=== PATIENT | female | born 1945 | race Caucasian/White ===

== ENCOUNTER 2017-02-08 15:23 | Emergency (ER) | payer OTHER ==
[2017-02-08 16:01] VITALS: BP 151/90; PULSE 97; TEMP 98; BMI 20.3
--- NOTE | 2017-02-08 16:47 | PDOC ---
Attending Attestation - Resident Resident Name: [email or web address] - ED Attending Attestation I have performed the following: I have examined & evaluated the patient, The case was reviewed & discussed with the resident, I agree w/resident's findings & plan, Exceptions are as noted - HPI HPI: 02/08/17 17:29 71 yo female with h/o alcoholism fell a day ago and sustained a scalp laceration PMH HTN and takes phillip PCP - Physicial Exam PE: 02/08/17 19:24 alert and conversant 71 yo female came today because she fell on [place] while intoxicated and wants to make sure her head is "OK" Head -several days old linear scalp laceration noted lungs cta b/l cvr [id number] and soft ,nontender extermities no extremity deformities neuro alert and oriented x 3,ambulatory, currently speaking with her - Medical Decision Making 02/08/17 19:04 ct scan head: there is no calvarial.facial or skull fractures. There is no intracranial hemorrhages or brain parenchymal contusion injuries. There are no extra-axial fluid collections or evidence of an intra -axial mass lesion -there is no evidence of acute ischemic lesion at this time 02/08/17 19:27 pt discharged home with her
[2017-02-08] MEDS ORDERED: FOLIC ACID INJECTION - 1 MG, THIAMINE HCL 100 MG, MULTIVIT INJECTION ADULT 10 ML in SOD... IVPB ONE (16:56)
[2017-02-08] MEDS ORDERED: MAGNESIUM SULF 50% (8.12 MEQ/2 ML-1 GM VIAL) IVPB ONE (16:56)
[2017-02-08 17:20] LABS: BASOPHIL 0.8 % (0-2.0); EOSINOPHIL 0.3 % (0-4.5); MEAN PLT VOLUME 7.3 fl (7.5-11.1); NEUTROPHILS 71.1 % (42.8-82.8); PLATELET COUNT 235 K/MM3 (134-434); RDW 14.3 % (11.6-15.6); WHITE BLOOD COUNT 9.1 K/mm3 (4.0-10.0)
--- NOTE | 2017-02-08 17:20 | PDOC ---
History of Present Illness - General History Source: Patient Exam Limitations: No Limitations - History of Present Illness Initial Comments: 02/08/17 17:15 The patient is a 71F with a PMH of alcoholism, glaucoma, and anxiety who presents to the ED after drinking and sustaining a fall. The patient states that she had her first drink in 3 years on Thursday and then fell. She does not remember the fall, she just remembers blood coming from her head. She also drank last night. She states that she woke up this morning feeling "awful" like a hangover. She denies any fever, chills, nausea, vomiting, CP, SOB. <Jose Morton - Last Filed: 02/08/17 17:25> <Porsche Paez - Last Filed: 02/08/17 19:28> - General Chief Complaint: Injury Stated Complaint: PCP SENT Time Seen by Provider: 02/08/17 16:30 Past History - Past Medical History Thyroid Disease: No - Suicide/Smoking/Psychosocial Hx Smoking History: Never smoked Have you smoked in the past 12 months: No Information on smoking cessation initiated: No Hx Alcohol Use: Yes Drug/Substance Use Hx: No Substance Use Type: None <Jose Morton - Last Filed: 02/08/17 17:25> <Porsche Paez - Last Filed: 02/08/17 19:28> - Past Medical History Allergies/Adverse Reactions: Allergies Allergy/AdvReac Type Severity Reaction Status Date / Time No Known Allergies Allergy Verified 02/08/17 16:01 Home Medications: Ambulatory Orders Brimonidine Tartrate [Alphagan 0.2% -] 1 drop OU DAILY 02/08/17 Review of Systems - Review of Systems Able to Perform ROS?: Yes Is the patient limited German proficient: No Constitutional: No: Chills, Fever HEENTM: No: Eye Pain Respiratory: No: Cough, Orthopnea, Shortness of Breath Cardiac (ROS): No: Chest Pain, Palpitations ABD/GI: No: Nausea, Vomiting : No: Burning, Dysuria, Discharge, Hematuria Musculoskeletal: No: Muscle Pain, Muscle Weakness Integumentary: No: Bruising, Dryness, Rash Neurological: No: Headache, Numbness, Tingling, Weakness <Jose Morton - Last Filed: 02/08/17 17:25> *Physical Exam - Vital Signs Last Vital Signs Temp Pulse Resp BP Pulse Ox 98.0 F 97 H 18 151/90 100 02/08/17 15:57 02/08/17 15:57 02/08/17 15:57 02/08/17 15:57 02/08/17 15:57 - Physical Exam General Appearance: Yes: Nourished, Appropriately Dressed, Mild Distress, Other. No: Apparent Distress, Alcohol on Breath (slightly shaky) HEENT: positive: Normal Voice, Hearing Grossly Normal Respiratory/Chest: positive: Lungs Clear, Normal Breath Sounds. negative: Chest Tender Cardiovascular: positive: Regular Rhythm, Regular Rate, S1, S2. negative: Diastolic Murmur, Systolic Murmur Gastrointestinal/Abdominal: positive: Flat, Soft. negative: Tender, Guarding, Rebound, Tenderness Musculoskeletal: negative: CVA Tenderness, CVA Tenderness (R), CVA Tenderness (L ) Extremity: positive: Normal Inspection, Normal Range of Motion, Other (2 cm healed laceration on R parietal scalp. Non erythematous and not warm to touch. No drainage/pus.). negative: Swelling, Calf Tenderness Integumentary: positive: Dry, Warm <Jose Morton - Last Filed: 02/08/17 17:25> - Vital Signs Last Vital Signs Temp Pulse Resp BP Pulse Ox 98.0 F 97 H 18 151/90 100 02/08/17 15:57 02/08/17 15:57 02/08/17 15:57 02/08/17 15:57 02/08/17 15:57 <Porsche Paez - Last Filed: 02/08/17 19:28> ED Treatment Course - LABORATORY CBC & Chemistry Diagram: 02/08/17 17:10 02/08/17 17:10 <Jose Morton - Last Filed: 02/08/17 17:25> - LABORATORY CBC & Chemistry Diagram: 02/08/17 17:10 02/08/17 17:10 - ADDITIONAL ORDERS Additional order review: Laboratory Results 02/08/17 02/08/17 17:10 17:10 Sodium 138 Potassium 4.1 Chloride 99 Carbon Dioxide 28 Anion Gap 11 BUN 23 H Creatinine 0.9 Creat Clearance w eGFR > 60 Random Glucose 103 Calcium 8.8 Total Bilirubin 0.7 AST 58 H ALT 41 Alkaline Phosphatase 86 Total Protein 7.1 Albumin 3.9 Alcohol, Quantitative < 5.0 02/08/17 17:10 RBC 4.85 MCV 88.0 MCHC 33.0 RDW 14.3 MPV 7.3 L Neutrophils % 71.1 Lymphocytes % 17.6 Monocytes % 10.2 Eosinophils % 0.3 Basophils % 0.8 - Medications Given in the ED: ED Medications Discontinued Medications Generic Name Dose Route Start Last Admin Trade Name Shilo PRN Reason Stop Dose Admin Chlordiazepoxide HCl 25 mg 02/08/17 17:22 02/08/17 17:33 Librium - PO 02/08/17 17:23 25 mg ONCE ONE Administration Magnesium Sulfate 2 gm 02/08/17 16:56 02/08/17 17:33 Magnesium Sulfate IVPB 02/08/17 16:57 2 gm ONCE ONE Administration <Porsche Paez - Last Filed: 02/08/17 19:28> Medical Decision Making - Medical Decision Making 02/08/17 17:23 The patient is a 71F with a PMH of alcoholism who presents to the ED after drinking and sustaining a fall Thursday. I will order labs and head CT to r/o brain bleed. I will also give a banana bag, mag, and librium. She is shaky, not tachycardic, but has a BP of 150's/120's. Will reassess after labs and imaging. <Jose Morton - Last Filed: 02/08/17 17:25> *DC/Admit/Observation/Transfer <Jose Morton - Last Filed: 02/08/17 17:25> <Porsche Paez - Last Filed: 02/08/17 19:28> Diagnosis at time of Disposition: Head injury due to trauma Qualifiers: Encounter type: initial encounter Qualified Code(s): S09.90XA - Unspecified injury of head, initial encounter - Discharge Dispostion Disposition: HOME Condition at time of disposition: Stable - Referrals Referrals: Pankaj Levin MD [Primary Care Provider] - - Patient Instructions Printed Discharge Instructions: DI for Closed Head Injury Additional Instructions: please refrain from excessive alcohol consumption
[2017-02-08] MEDS ORDERED: chlordiazePOXIDE HCL 25 MG CAPSULE PO ONE (17:22)
[2017-02-08] MEDS ORDERED: MAGNESIUM SULF 50% (8.12 MEQ/2 ML-1 GM VIAL) ONE (17:37)
[2017-02-08] MEDS ORDERED: chlordiazePOXIDE HCL 25 MG CAPSULE ONE (17:37)
[2017-02-08 18:04] LABS: ALBUMIN 3.9 g/dl (3.4-5.0); ANION GAP 11 (8-16); BILIRUBIN,TOTAL 0.7 mg/dL (0.2-1.0); CALCIUM 8.8 mg/dL (8.5-10.1); CO2 28 mmol/L (21-32); CREATININE 0.9 mg/dL (0.55-1.02); GLUCOSE,RANDOM 103 mg/dL (74-106); SGOT/AST 58 U/L (15-37); SGPT/ALT 41 U/L (12-78); TOT PROT 7.1 g/dl (6.4-8.2)
[2017-02-08 18:05] LABS: ALK PHOS 86 U/L (45-117)
--- NOTE | 2017-02-10 07:13 | EKG ---
Test Reason : Blood Pressure : / mmHG Vent. Rate : 066 BPM Atrial Rate : 066 BPM P-R Int : 180 ms QRS Dur : 092 ms QT Int : 446 ms P-R-T Axes : 027 -19 013 degrees QTc Int : 467 ms NORMAL SINUS RHYTHM T WAVE ABNORMALITY, CONSIDER ANTERIOR ISCHEMIA ABNORMAL ECG NO PREVIOUS ECGS AVAILABLE Confirmed by YOUSIF GERARD MD ([id number]) on 02/10/2017 7:12:48 AM Referred By: Confirmed By:YOUSIF GERARD MD
== END 2017-02-08 19:46 | disposition home or self-care (01) ==
LOC: JER 15:23
PROC: 3E033GC Introduction of Other Therapeutic Substance into Peripheral Vein, Percutaneous Approach (ICD-10-PCS; principal; 2017-02-08)
PROC: 3E033GC Introduction of Other Therapeutic Substance into Peripheral Vein, Percutaneous Approach (ICD-10-PCS; 2017-02-08)
DX: S01.01XA Laceration without foreign body of scalp, initial encounter (principal); W18.39XA Other fall on same level, initial encounter; Y93.89 Activity, other specified; Y92.038 Other place in apartment as the place of occurrence of the external cause; F10.20 Alcohol dependence, uncomplicated; Y90.9 Presence of alcohol in blood, level not specified; I10 Essential (primary) hypertension
CPT/HCPCS: 36415; 70450-TC; 80053; 80307; 85025; 93005; 93010; 96365; 96366; 96374; 99283-25

== ENCOUNTER 2018-04-27 16:03 | Observation (INO) | payer OTHER ==
--- NOTE | 2018-04-27 16:50 | PDOC ---
History of Present Illness - General Chief Complaint: Bite Stated Complaint: BITE BY DOG Time Seen by Provider: 04/27/18 16:23 History Source: Patient, Family Exam Limitations: No Limitations - History of Present Illness Initial Comments: 04/27/18 16:50 Was cleaning him a [place] bulldog when aggravated dog turned and bit her in the left hand incurring an open wound to the proximal aspect of her fourth left digit. Was seen at an urgent care, cleaned and referred to emergency department seeing an open fracture Occurred: reports: just prior to arrival, this afternoon Severity: reports: moderate Pain Location: reports: upper extremity (left 4th digit ) Method of Injury: Yes: other (family pet / dog bite ) Modifying Factors: improves with: None Loss of Consciousness: no loss of consciousness Associated Symptoms (Fall): denies symptoms Past History - Travel Traveled outside of the country in the last 30 days: No Close contact w/someone who was outside of country & ill: No - Past Medical History Allergies/Adverse Reactions: Allergies Allergy/AdvReac Type Severity Reaction Status Date / Time No Known Allergies Allergy Verified 04/27/18 16:52 Home Medications: Ambulatory Orders Brimonidine Tartrate [Alphagan 0.2% -] 1 drop OU DAILY 02/08/17 Atorvastatin Calcium [Lipitor] 20 mg PO HS 04/27/18 Sertraline HCl [Zoloft -] 50 mg PO BID 04/27/18 Travoprost [Travatan Z] 2.5 ml OU ASDIR 04/27/18 Alprazolam 0.5 mg PO DAILY 04/28/18 Amox-Tr/K Cl [Augmentin - 875Mg Tablet] 1 tab PO BID #20 tablet 04/28/18 Gabapentin 100 mg PO BID 04/28/18 Nitrofurantoin Monohyd/M-Cryst [Macrobid -] 100 mg PO BID 04/28/18 Quetiapine Fumarate [Seroquel -] 12.5 mg PO BID 04/28/18 Thyroid Disease: No - Suicide/Smoking/Psychosocial Hx Smoking History: Former smoker Have you smoked in the past 12 months: No Information on smoking cessation initiated: No Hx Alcohol Use: Yes Drug/Substance Use Hx: No Substance Use Type: None Trauma Specific PMHX - Complaint Specific PMHX Back Injury: No Neck Injury: No Review of Systems - Review of Systems Able to Perform ROS?: Yes Is the patient limited Lao proficient: Yes Constitutional: Yes: See HPI. No: Symptoms Reported, Fever HEENTM: Yes: See HPI. No: Symptoms Reported Musculoskeletal: Yes: Symptoms Reported Integumentary: Yes: Symptoms Reported, See HPI, Other Neurological: Yes: See HPI. No: Symptoms reported All Other Systems: Reviewed and Negative *Physical Exam - Vital Signs Last Vital Signs Temp Pulse Resp BP Pulse Ox 97.9 F 68 18 167/71 98 04/27/18 16:21 04/27/18 16:21 04/27/18 16:21 04/27/18 16:21 04/27/18 16:21 - Physical Exam General Appearance: Yes: Nourished, Appropriately Dressed, Apparent Distress, Mild Distress HEENT: positive: MACO, Normal ENT Inspection, TMs Normal, Pharynx Normal Neck: positive: Supple Respiratory/Chest: positive: Lungs Clear, Normal Breath Sounds Extremity: positive: Normal Capillary Refill, Other (swollen and ecchymotic left fourth digit starting at MCP and extending to DIP. Has some deformity and tenderness at the proximal phalanx, site of fracture. Distal to injury patient has good sensation but mobility is limited.). negative: Normal Inspection, Normal Range of Motion Integumentary: positive: Normal Color, Other (puncture wound to the radial aspect of left fourth digit at proximal phalanx 2 sites, and 1 and palmar aspect.) Neurologic: positive: installation coordinator II-XII NML intact, Fully Oriented, Alert, Normal Mood/ Affect, Normal Response, Motor Strength 5/5 Moderate Sedation - Procedure Monitoring Vital Signs: Procedure Monitoring Vital Signs Temperature 97.9 F 04/27/18 16:21 Pulse Rate 68 04/27/18 16:21 Respiratory Rate 18 04/27/18 16:21 Blood Pressure 167/71 04/27/18 16:21 O2 Sat by Pulse Oximetry (%) 98 04/27/18 16:21 ED Treatment Course - LABORATORY CBC & Chemistry Diagram: 04/28/18 05:30 04/28/18 05:30 Progress Note - Progress Note Progress Note: Open fracture dogbite. Patient to be admitted for operative irrigation and pinning per Dr Soto. [id number] and family updated to plan . Report given to Nursing staf ~ 7Pm Medical Decision Making - Medical Decision Making 04/27/18 17:[address] Soto who recommends OR for irrigation and stabilization of open fracture of left fourth digit. We'll keep patient nothing by mouth, admit to hospitalist, and patient and son reviewed plan with Dr. Soto *DC/Admit/Observation/Transfer Diagnosis at time of Disposition: Dog bite of multiple sites of left hand and fingers Qualifiers: Encounter type: initial encounter Qualified Code(s): S61.452A - Open bite of left hand, initial encounter HTN (hypertension) Qualifiers: Hypertension type: essential hypertension Qualified Code(s): I10 - Essential ( primary) hypertension Open fracture of proximal phalanx of left ring finger Qualifiers: Encounter type: initial encounter Fracture alignment: displaced Qualified Code( s): S62.615B - Displaced fracture of proximal phalanx of left ring finger, initial encounter for open fracture - Discharge Dispostion Disposition: HOME Condition at time of disposition: Good Decision to Admit order: No - Prescriptions - Referrals - Patient Instructions - Post Discharge Activity
[2018-04-27] MEDS ORDERED: AMPICILLIN NA/SULBACTAM NA 3 GM in SODIUM CHLORIDE 100 ML IVPB ONE (17:26)
[2018-04-27 17:42] LABS: RDW 13.8 % (11.6-15.6); WHITE BLOOD COUNT 6.3 K/mm3 (4.0-10.0)
[2018-04-27 17:46] LABS: URINE APPEARANCE CLEAR; URINE BILIRUBIN NEGATIVE (<2.0 mg/dL); URINE COLOR STRAW; URINE GLUCOSE (UA) NEGATIVE (NEGATIVE); URINE KETONE NEGATIVE (NEGATIVE); URINE LEUK ESTERASE NEGATIVE (NEGATIVE); URINE NITRITE NEGATIVE (NEGATIVE); URINE PROTEIN NEGATIVE (NEGATIVE); URINE UROBILINOGEN NEGATIVE mg/dL (0.2-1.0)
[2018-04-27 17:47] LABS: BASO % 0.9 % (0-2.0); EOS % 0.8 % (0-4.5); HEMATOCRIT 44.5 % (32.4-45.2); HEMOGLOBIN 14.3 GM/dL (10.7-15.3); LYMPH % 14.6 % (8-40); MCH 28.2 pg (25.7-33.7); MCHC 32.1 g/dl (32.0-36.0); MEAN CELL VOLUME 87.8 fl (80-96); MEAN PLT VOLUME 7.2 fl (7.5-11.1); MONO % 6.9 % (3.8-10.2); NEUT % 76.8 % (42.8-82.8); PLATELET COUNT 246 K/MM3 (134-434); RBC 5.07 M/mm3 (3.60-5.2)
[2018-04-27 17:50] LABS: EPI CELLS RARE /HPF (FEW); URINE MUCUS RARE
[2018-04-27 18:02] LABS: ALBUMIN 4.4 g/dl (3.4-5.0); ALK PHOS 83 U/L (45-117); ANION GAP 6 MMOL/L (8-16); BILIRUBIN,TOTAL 0.4 mg/dL (0.2-1); BLOOD UREA NITROGEN 12 mg/dL (7-18); CALCIUM 9.2 mg/dL (8.5-10.1); CHLORIDE 106 mmol/L (98-107); CO2 27 mmol/L (21-32); CREATININE 0.8 mg/dL (0.55-1.3); GLUCOSE,RANDOM 105 mg/dL (74-106); POTASSIUM 4.6 mmol/L (3.5-5.1); SGOT/AST 35 U/L (15-37); SGPT/ALT 36 U/L (13-61); SODIUM 139 mmol/L (136-145); TOT PROT 7.9 g/dl (6.4-8.2)
--- NOTE | 2018-04-27 18:26 | PDOC ---
*Physical Exam - Vital Signs Last Vital Signs Temp Pulse Resp BP Pulse Ox 97.9 F 68 18 167/71 98 04/27/18 16:21 04/27/18 16:21 04/27/18 16:21 04/27/18 16:21 04/27/18 16:21 - Physical Exam Comments: 04/27/18 21:37 left hand ring finger had a displaced proximal phalanx fracture head ncat neck supple lungs cta b/l cvs [id number] neuro axox3,no gross focal neuro deficits ED Treatment Course - LABORATORY CBC & Chemistry Diagram: 04/27/18 17:30 04/27/18 17:30 - ADDITIONAL ORDERS Additional order review: Laboratory Results 04/27/18 04/27/18 17:40 17:30 Sodium 139 Potassium 4.6 Chloride 106 Carbon Dioxide 27 Anion Gap 6 L BUN 12 Creatinine 0.8 Creat Clearance w eGFR > 60 Random Glucose 105 Calcium 9.2 Total Bilirubin 0.4 AST 35 ALT 36 Alkaline Phosphatase 83 Total Protein 7.9 Albumin 4.4 Urine Color Straw Urine Appearance Clear Urine pH 6.0 Ur Specific [place] 1.005 L Urine Protein Negative Urine Glucose (UA) Negative Urine Ketones Negative Urine Blood 1+ H Urine Nitrite Negative Urine Bilirubin Negative Urine Urobilinogen Negative Ur Leukocyte Esterase Negative Urine WBC (Auto) <1 Urine RBC (Auto) 1 Ur Epithelial Cells Rare Urine Mucus Rare 04/27/18 17:30 RBC 5.07 MCV 87.8 MCHC 32.1 RDW 13.8 MPV 7.2 L Neutrophils % 76.8 Lymphocytes % 14.6 Monocytes % 6.9 Eosinophils % 0.8 D Basophils % 0.9 Medical Decision Making - Medical Decision Making 04/27/18 18:24 this 72 yo female was bite by family dog and sustained an open 4th digit fracture that needs to be treated in the OR. The surgeon Dr Soto is taking her to the OR now and expects to discharge her in 23 hours. Requesting hospitalist to admit PMH glaucoma,HTN,anxiety,arthritis *DC/Admit/Observation/Transfer Diagnosis at time of Disposition: Dog bite of multiple sites of left hand and fingers Qualifiers: Encounter type: initial encounter Qualified Code(s): S61.452A - Open bite of left hand, initial encounter HTN (hypertension) Qualifiers: Hypertension type: essential hypertension Qualified Code(s): I10 - Essential ( primary) hypertension Open fracture of proximal phalanx of left ring finger Qualifiers: Encounter type: initial encounter Fracture alignment: displaced Qualified Code( s): S62.615B - Displaced fracture of proximal phalanx of left ring finger, initial encounter for open fracture - Discharge Dispostion Condition at time of disposition: Improved Decision to Admit order: Yes - Referrals - Patient Instructions - Post Discharge Activity - Attestations Physician Attestion: 04/27/18 21:39 I, Dr. Paez,Porsche Suarez, attest that this document has been prepared under my direction and personally reviewed by me in its entirety. I further attest, that it accurately reflects all work, treatment, procedures and medical decision -making performed by me.
--- NOTE | 2018-04-27 18:30 | CONSULT ---
Consult Consult Specialty:: Hand and microsurgery Reason for Consultation:: open fracture left ring finger prox phalanx dog bite - History of Present Illness Chief Complaint: left hand dog bite History of Present Illness: 72 yo female RHD with PMH HTN, glaucoma, anxiety, OA [place] bulldog when aggravated dog turned and bit her in the left hand incurring an open wound to the proximal aspect of her fourth left digit. 3rd dog bite by the same dog? Was seen at an urgent care, cleaned and referred to emergency department seeing an open fracture. we were called to assess. - History Source History Provided By: Patient, Medical Record Limitations to Obtaining History: No Limitations - Past Medical History Cardio/Vascular: Yes: HTN Reproductive: Yes: Postmenopausal ...: No Musculoskeletal: Yes: Osteoarthritis Additional Medical History: gloucoma - Alcohol/Substance Use Hx Alcohol Use: Yes - Smoking History Smoking history: Former smoker Have you smoked in the past 12 months: No - Social History ADL: Independent Place of : [facility] History of Recent Travel: No Home Medications - Allergies Allergies/Adverse Reactions: Allergies Allergy/AdvReac Type Severity Reaction Status Date / Time No Known Allergies Allergy Verified 04/27/18 16:52 - Home Medications Home Medications: Ambulatory Orders Brimonidine Tartrate [Alphagan 0.2% -] 1 drop OU DAILY 02/08/17 Atorvastatin Calcium [Lipitor] 20 mg PO HS 04/27/18 Sertraline HCl [Zoloft -] 50 mg PO DAILY 04/27/18 Travoprost [Travatan Z] 2.5 ml OU ASDIR 04/27/18 Review of Systems - Review of Systems Constitutional: denies: Chills, Fever Eyes: denies: Blind Spots, Recent Change in Vision HENT: denies: Difficult Swallowing, Throat Pain Neck: denies: Decreased ROM, Tenderness Cardiovascular: denies: Chest Pain, Palpitations Respiratory: denies: Cough, SOB Gastrointestinal: denies: Abdominal Pain, Constipation, Diarrhea, Melena Genitourinary: denies: Discharge, Dysuria, Flank Pain, Pain Musculoskeletal: denies: Crepitus, Decreased ROM Integumentary: denies: Bruising, Pallor Neurological: denies: Seizure, Syncope Endocrine: denies: Unexplained Weight Gain, Unexplained Weight Loss Hematology/Lymphatic: denies: Easily Bruised, Excessive Bleeding Psychiatric: denies: Anxiety, Depression Physical Exam Vital Signs: Vital Signs Temperature 97.9 F 04/27/18 16:21 Pulse Rate 68 04/27/18 16:21 Respiratory Rate 18 04/27/18 16:21 Blood Pressure 167/71 04/27/18 16:21 O2 Sat by Pulse Oximetry (%) 98 04/27/18 16:21 Vital Signs Period Temp Pulse Resp BP Sys/Caruso Pulse Ox Last 24 Hr 97.9 F 68 18 167/71 98 Intake & Output 04/27/18 04/27/18 04/27/18 07:59 15:59 23:59 Weight 122 lb Other: Height 5 ft 7 in Body Mass Index (BMI) 19.1 Constitutional: Yes: Well Nourished, No Distress, Anxious Eyes: Yes: Conjunctiva Clear, EOM Intact HENT: Yes: Atraumatic, Normocephalic, Other Neck: Yes: Supple Cardiovascular: Yes: Regular Rate and Rhythm, S1, S2 Respiratory: Yes: Regular, CTA Bilaterally Gastrointestinal: Yes: Normal Bowel Sounds, Soft. No: Tenderness ...Rectal Exam: Yes: Deferred Renal/: No: CVA Tenderness - Left, CVA Tenderness - Right Breast(s): No: Discharge from Nipple, Gynecomastia Musculoskeletal: No: Muscle Pain, Muscle Weakness Extremities: No: Cool, Cyanosis Edema: Yes Integumentary: No: Jaundice, Laceration Wound/Incision: Yes: Clean/Dry, Draining, Reddened (left hand ring finger proximal phalanx), Bleeding, Unapproximated Neurological: Yes: Alert, Oriented Psychiatric: Yes: Alert, Oriented Labs: CBC, BMP 04/27/18 17:30 04/27/18 17:30 Imaging - Results X-ray: Report Reviewed, Image Reviewed (displaced practure proximal phalanx, malrotated and foreshortened) Problem List - Problems (1) Open fracture of proximal phalanx of left ring finger Assessment/Plan: 72yo yo female RHD with a left proximal ring finger open fracture after dog bite NPO and IVF hydration IV Unasyn tetanus OR for washout and ORIF left ring finger proximal phalanx Discussed with patient risks, benefits and alternatives to aforementioned procedure, including but not limited to bleeding, infection, injury to adjacent structures, need for further procedures, ; alternatives include antibiotics , delayed or no surgery - risks of this include failure of nonoperative therapy , perforation, sepsis, recurrence, . Patient desires to proceed with operation - will take to OR for above. Informed consent signed for same. Thank you for the opportunity to participate in the care of this patient. Code(s): S62.615B - DISP FX OF PROXIMAL PHALANX OF L RNG FNGR, INIT FOR OPN FX Qualifiers: Encounter type: initial encounter Fracture alignment: displaced Qualified Code(s): S62.615B - Displaced fracture of proximal phalanx of left ring finger, initial encounter for open fracture (2) Dog bite of multiple sites of left hand and fingers Code(s): S61.452A - OPEN BITE OF LEFT HAND, INITIAL ENCOUNTER; S61.259A - OPEN BITE OF UNSP FINGER WITHOUT DAMAGE TO NAIL, INIT ENCNTR; W54.0XXA - BITTEN BY DOG, INITIAL ENCOUNTER Qualifiers: Encounter type: initial encounter Qualified Code(s): S61.452A - Open bite of left hand, initial encounter; S61.259A - Open bite of unspecified finger without damage to nail, initial encounter; W54.0XXA - Bitten by dog, initial encounter (3) Anxiety Code(s): F41.9 - ANXIETY DISORDER, UNSPECIFIED (4) HTN (hypertension) Code(s): I10 - ESSENTIAL (PRIMARY) HYPERTENSION Qualifiers: Hypertension type: essential hypertension Qualified Code(s): I10 - Essential (primary) hypertension (5) Glaucoma Code(s): H40.9 - UNSPECIFIED GLAUCOMA
[2018-04-27] MEDS ORDERED: LACTATED RINGERS SOLUTION 1,000 ML/1,000 ML INFUS.BAG IV SCH (18:45)
[2018-04-27] MEDS ORDERED: oxyCODONE HCL 5 MG TABLET PO PRN ×2 (18:56)
[2018-04-27] MEDS ORDERED: IBUPROFEN 800 MG/8 ML IJ IVPB PRN (18:56)
[2018-04-27] MEDS ORDERED: ONDANSETRON 4 MG/2 ML VIAL IVPUSH PRN (18:56)
[2018-04-27] MEDS ORDERED: LACTATED RINGERS SOLUTION 1,000 ML IV SCH ×2 (19:00→21:00)
--- NOTE | 2018-04-27 19:28 | OP ---
Operative Note - Note: Operative Date: 04/27/18 Pre-Operative Diagnosis: open frature left ring finger proximal phalanx Operation: left ring finger fracture washout and open reduction and percutaneoaus pinning Findings: displaced and rotated left proximal phalanx fracture. dorsal approach with repaired extensor tendon. Implants: k-wires 0.45 X1 Post-Operative Diagnosis: Same as Pre-op Surgeon: Bradford Soto Anesthesiologist/EVENT PROMOTIONS COORDINATOR: Yi Joshi Anesthesia: General, Local (marcaine 0.5%) Estimated Blood Loss (mls): 2 Fluid Volume Replaced (mls): 500 Operative Report Dictated: Yes
[2018-04-27] MEDS ORDERED: ACETAMINOPHEN 1000 MG/100 ML VIAL (NON FORMULARY) IVPB ONE ×2 (19:45→23:15)
--- NOTE | 2018-04-27 19:47 | PN ---
Teaching Attending Note Name of Resident: Bruna Roche ATTENDING PHYSICIAN STATEMENT I saw and evaluated the patient. I reviewed the resident's note and discussed the case with the resident. I agree with the resident's findings and plan as documented. SUBJECTIVE: Patient is a 71 [place] old woman with a PMH of alcoholism, glaucoma, HTN, osteoarthritis and anxiety who presents to the ER after a dog bite. Was cleaning her Kinyarwanda bulldog when the aggravated dog turned and bit her in the left hand incurring an open wound to the proximal aspect of her fourth left digit. Was seen at an urgent care, cleaned and referred to ER for an open fracture. Being taken to the OR for surgery. Had been bitten twice by same dog before. OBJECTIVE: Alert Vital Signs Period Temp Pulse Resp BP Sys/Caruso Pulse Ox Last 24 Hr 97.9 F 68 18 167/71 98 HEENT: No Jaundice, eye redness or discharge, PERRLA, EOMI. Normocephalic, atraumatic. External ears are normal and hearing is grossly intact. No nasal discharge. Neck: Supple, nontender. No palpable adenopathy or thyromegaly. No JVD Chest: Good effort. Clear to auscultation and percussion. Heart: Regular. No S3, rub or murmur Abdomen: Not distended, soft, nontender and no HSM. No rebound or guarding. Normoactive bowel sounds. Ext: Peripheral pulses intact. No leg edema. Bite bain on left 4thand 5th fingers. ?Fracture terminal phalanx of 4th finger Skin: Warm and dry. No petechiae, rash or ecchymosis. Neuro: Alert. Oriented x3. CN 2-12 grossly intact. Sensation grossly intact in all four extremities and DTR are symmetric. Current Medications Generic Name Dose Route Start Last Admin Trade Name Freq PRN Reason Stop Dose Admin Fentanyl 50 mcg 04/27/18 18:56 Sublimaze Injection - IVPUSH 04/28/18 03:00 [id number] PRN PAIN-PACU ORDER X 4 DOSES ONLY Lactated Ringer's 1,000 mls @ 125 mls/hr 04/27/18 19:00 04/27/18 19:04 Lactated Ringers Solution IV 125 mls/hr ASDIR ROSA ISELA Administration Ibuprofen 800 mg 04/27/18 18:56 Caldolor Injection - IVPB 04/29/18 18:55 Q6H PRN Pain - Pacu Ondansetron HCl 4 mg 04/27/18 18:56 Zofran Injection IVPUSH 04/28/18 03:00 Q6H PRN NAUSEA AND/OR VOMITING Oxycodone HCl 5 mg 04/27/18 18:56 Roxicodone - PO Q4H PRN PAIN LEVEL 1-5 Oxycodone HCl 10 mg 04/27/18 18:56 Roxicodone - PO Q4H PRN PAIN LEVEL 6-10 Home Medications Medication Instructions Recorded Brimonidine Tartrate [Alphagan 1 drop OU DAILY 02/08/17 0.2% -] Atorvastatin Calcium [Lipitor] 20 mg PO HS 04/27/18 Sertraline HCl [Zoloft -] 50 mg PO DAILY 04/27/18 Travoprost [Travatan Z] 2.5 ml OU ASDIR 04/27/18 Abnormal Lab Results 04/27/18 04/27/18 04/27/18 17:30 17:30 17:40 MPV 7.2 L Anion Gap 6 L Ur Specific [place] 1.005 L Urine Blood 1+ H ASSESSMENT AND PLAN: 1. Fracture left 4th digit/Dog bite - Patient started to Unasyn and is going for surgery tonight. Recently got a tetanus shot. Dog is reportedly uptodate with Rabies shots. 2. Alcohol abuse - Implement [facility] alcohol withdrawal protocol, fall and aspiration precautions. Treat with thiamine and folic acid and monitor electrolytes (Ca,Mg,K,P). [employer] patient about abstaining from alcohol. 3. DVT prophylaxis - Lovenox 40 mg SQ q 24 hours. 4. Advance directives - Full code
[2018-04-27] MEDS ORDERED: SODIUM CHLORIDE 0.9% P/F 10 ML VIAL IJ ONE (21:43)
[2018-04-27] MEDS ORDERED: PROPOFOL 20 ML ONE ×2 (21:53)
[2018-04-27] MEDS ORDERED: MIDAZOLAM HCL 2 MG/2 ML SINGLE DOSE VIAL ONE (21:53)
[2018-04-27] MEDS ORDERED: SUCCINYLCHOLINE CHLORIDE 200 MG/10 ML VIAL ONE (21:53)
[2018-04-27] MEDS ORDERED: DEXAMETHASONE SOD PHOSPHATE 4 MG/1 ML VIAL ONE (22:28)
[2018-04-27] MEDS ORDERED: LIDOCAINE HCL/PF 2% SDV 5ML VIAL ONE (22:28)
[2018-04-27] MEDS ORDERED: BACITRACIN 50,000 UNITS VIAL TP ONE (22:40)
[2018-04-27] MEDS ORDERED: KETOROLAC TROMETHAMINE 30 MG/1 ML VIAL ONE (22:41)
[2018-04-27] MEDS ORDERED: BUPIVACAINE HCL/PF (5 MG/ML) 30 ML VIAL IJ ONE (22:46)
[2018-04-27] MEDS ORDERED: ACETAMINOPHEN INJECTION 100 ML IVPB ONE (23:16)
--- NOTE | 2018-04-27 23:46 | OP ---
DATE OF OPERATION: 04/27/2018 PREOPERATIVE DIAGNOSIS: Open fracture left ring finger proximal phalanx. POSTOPERATIVE DIAGNOSIS: Open fracture left ring finger proximal phalanx. PROCEDURE: Left ring finger fracture washout, open reduction and percutaneous pinning. SURGEON: Bradford Soto MD SHOE RECONDITIONER: None. ANESTHESIOLOGIST: Yi Joshi MD ANESTHESIA: General with local. Local consisted of 0.5% Marcaine, a total of 10 mL was given in an inner block fashion. ESTIMATED BLOOD LOSS: 2 mL. INTRAVENOUS FLUIDS: 500 mL. IMPLANT: Juwan wire 0.045 x1 with pin cap. BRIEF INDICATIONS: Patient is a 72-year-old female presenting after a dog bite with an open fracture to the left ring finger proximal phalanx. She is counseled regarding the risks, benefits, and alternatives to surgical fixation after washout. She signed informed consent and was taken for the procedure. DESCRIPTION OF PROCEDURE: Patient brought to the operating room and placed in the supine position on the operating table with the left arm extended 90 degrees perpendicular to the body's midline axis. Left hand was prepped and draped in the standard surgical field. She had lower extremity SCDs placed. She received intravenous antibiotics in the form of Unasyn 3 hours prior to surgery. She was induced with general anesthesia, endotracheally intubated without incident, at which point we began first with a formal timeout identifying the operative procedure and the site. With all parties in agreement, we began with the dorsal approach to the left proximal phalanx overlying. The 15-blade was used to incise the finger. It was deepened and widened through the subcutaneous tissue. This was after the tourniquet was inflated to a pressure of 250 mmHg. The arm was exsanguinated. After encountering the fracture hematoma after the extensor tendon was opened in the midline with a 15-blade scalpel as well, the fracture was elevated and reduced into position. The bone appeared demineralized. The bone was rotated ulnarly approximately 30 degrees off midline neutral axis. This was reduced into normal anatomic position and the fracture was aligned. Reduction clamp was placed across the fracture site to maintain the reduction with fixation. Juwan wire obliquely was passed retrograde through and into the body of the proximal phalanx. This was used to fix the fracture, at which point it was cut and bent to shape and then a pin cap was placed. With this done, the site was then irrigated copiously with bacitracin irrigation, approximately a half liter. With the site clear, the extensor tendon was repaired in the midline using [id number] 4-0 Vicryl in an interrupted fashion, burying the knot. After approximating the extensor tendon in the midline, the skin was then whip-stitched with a baseball 4-0 nylon along the length of the incision. After completing this, Xeroform, 4 x 4's, and a volar resting cast was placed. Patient was awoken from anesthesia, having tolerated the procedure well. She was given instructions to follow up in a period of 2 weeks for cast change, at which point we will place her into an ulnar gutter cast. She was blocked with Marcaine for postoperative pain. All counts were correct. MD AURY Flaherty/[id number]
--- NOTE | 2018-04-27 23:55 | HP ---
CHIEF COMPLAINT: Dog Bite PCP: Pankaj Levin HISTORY OF PRESENT ILLNESS: 72 y/o F with PMHx of Glaucoma, Panic Attacks, HLD presents after being bitten by her son's, girlfriends dog. Patient has been bitten by the same dog 3 times in the past 1.5 years. Today she was cleaning the dog when she was bitten on her NonDominant hand. She experienced pain and visited an Urgent care where she was referred to the ED for possible fracture. She has not tried to clean the wound nor has she tried anything for pain. She describes the pain as a Dull, constant 9/10 at the left 4th digit that radiates to her anterior palm. She received her last tetanus shot when she was bitten initially 1.5 years ago. 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 Of note, the patient is currently completing a 7 day course of ABx (Unknown which one) for a UTI. Denies any associated fevers, chills, chest pain, SOB, nausea, vomiting, diarrhea, constipation. ER course was notable for: (1) Ibproufen, Roxicodone (2) LR @ 125 mls/hr (3) Recent Travel: Denies PAST MEDICAL HISTORY: Glaucoma, Panic Attacks, HLD PAST SURGICAL HISTORY: Spinal Sx (10 years ago) Social History: Smoking: Quit 12 years ago; 1ppd from age [age] Alcohol: in AA; Says her last Drink was 28 years Drugs: Denies Occupation: Retired Ambulation: Runs 5 miles daily Residence: Lives alone in [facility] Family History: Allergies No Known Allergies Allergy (Verified 04/27/18 16:52) HOME MEDICATIONS: Home Medications Medication Instructions Recorded Brimonidine Tartrate [Alphagan 1 drop OU DAILY 02/08/17 0.2% -] Atorvastatin Calcium [Lipitor] 20 mg PO HS 04/27/18 Sertraline HCl [Zoloft -] 50 mg PO DAILY 04/27/18 Travoprost [Travatan Z] 2.5 ml OU ASDIR 04/27/18 REVIEW OF SYSTEMS As per HPI PHYSICAL EXAMINATION Vital Signs - 24 hr 04/27/18 04/27/18 04/27/18 16:21 19:30 21:00 Temperature 97.9 F 97.5 F L 98.2 F Pulse Rate 68 Pulse Rate [ 55 L 51 L Right Radial] Respiratory 18 18 16 Rate Blood Pressure 167/71 Blood Pressure 172/59 H 165/68 [Right Arm] O2 Sat by Pulse 98 99 96 Oximetry (%) GENERAL: A&Ox3, NAD HEAD: NCAT EYES: PERRL, EOMI EARS, NOSE, THROAT: Moist mucous membranes. NECK: No JVD LUNGS: CTA B/L, No wheezes, no crackles HEART: Regular rate and rhythm, normal S1 and S2 without murmur ABDOMEN: Soft, nontender, not distended, normoactive bowel sounds, no guarding UPPER EXTREMITIES: 2+ pulses. Left 4th digit anterior bite minna with overlying dried blood warm, Decreased ROM due to pain. C5-T1 Gross sensation intact b/l. 5 /5 muscle strength to elbow flexion and extension. LOWER EXTREMITIES: No peripheral edema. NEUROLOGICAL: Cranial nerves II-XII intact. Normal speech. SKIN: Warm, dry Laboratory Results - last 24 hr 04/27/18 04/27/18 04/27/18 17:30 17:30 17:40 WBC 6.3 RBC 5.07 Hgb 14.3 Hct 44.5 MCV 87.8 MCH 28.2 MCHC 32.1 RDW 13.8 Plt Count 246 MPV 7.2 L Absolute Neuts (auto) 4.9 Neutrophils % 76.8 Lymphocytes % 14.6 Monocytes % 6.9 Eosinophils % 0.8 D Basophils % 0.9 Nucleated RBC % 0 Sodium 139 Potassium 4.6 Chloride 106 Carbon Dioxide 27 Anion Gap 6 L BUN 12 Creatinine 0.8 Creat Clearance w eGFR > 60 Random Glucose 105 Calcium 9.2 Total Bilirubin 0.4 AST 35 ALT 36 Alkaline Phosphatase 83 Total Protein 7.9 Albumin 4.4 Urine Color Straw Urine Appearance Clear Urine pH 6.0 Ur Specific [place] 1.005 L Urine Protein Negative Urine Glucose (UA) Negative Urine Ketones Negative Urine Blood 1+ H Urine Nitrite Negative Urine Bilirubin Negative Urine Urobilinogen Negative Ur Leukocyte Esterase Negative Urine WBC (Auto) <1 Urine RBC (Auto) 1 Ur Epithelial Cells Rare Urine Mucus Rare ASSESSMENT/PLAN: 72 y/o F with PMHx of Glaucoma, Panic Attacks, HLD presents after being bitten by dog. #Left 4th Digit Fx 2/2 Dog bite -Finger XRay reveals displaced Fracture proximal phalanx -Started on Unasyn in ED; Will Continue Unasyn 3gm Q8H -Continue Tylenol -General Surgery (Dr. Soto) Consulted, For OR Tonight at 22:00 -NPO -LR @ 125 mls/hr #Elevated BP -Initally 167/71; Repeated 134/70 -Likely due to pain, patient also says she is anxious in the ED #FEN -IV LR @ 125 mls/hr -Teodorates WNL -NPO pending OR #PPx -DVT: SCDs Dispo: Obs, Med-Surg Visit type - Emergency Visit Emergency Visit: Yes ED Registration Date: 04/27/18 Care time: The patient presented to the Emergency Department on the above date and was hospitalized for further evaluation of their emergent condition. - New Patient This patient is new to me today: Yes Date on this admission: 04/28/18 - Critical Care Critical Care patient: No
[2018-04-28] MEDS ORDERED: KETOROLAC TROMETHAMINE 15 MG/ML VIAL IVPUSH PRN (00:19)
[2018-04-28] MEDS ORDERED: ACETAMINOPHEN 325 MG TABLET (FP) PO PRN (00:20)
[2018-04-28] MEDS ORDERED: IBUPROFEN 600 MG TABLET (FP) PO PRN (00:20)
[2018-04-28 01:33] VITALS: BMI 20.9
[2018-04-28] MEDS ORDERED: AMPICILLIN NA/SULBACTAM NA 1.5 GM VIAL ONE ×3 (02:10→14:43)
[2018-04-28] MEDS ORDERED: DEXTROSE 5%-WATER 100 ML IVPB ONE ×3 (02:11→14:43)
[2018-04-28] MEDS: LACTATED RINGERS SOLUTION 1,000 ML IV SCH ×2 (02:49)
[2018-04-28] MEDS: AMPICILLIN NA/SULBACTAM NA 1.5 GM in DEXTROSE 5%-WATER 100 ML IVPB SCH ×3 (02:50→14:47)
[2018-04-28 06:20] LABS: BASO % 0.3 % (0-2.0); EOS % 0.1 % (0-4.5); HEMATOCRIT 38.2 % (32.4-45.2); HEMOGLOBIN 12.3 GM/dL (10.7-15.3); LYMPH % 8.5 % (8-40); MCH 28.3 pg (25.7-33.7); MCHC 32.2 g/dl (32.0-36.0); MEAN CELL VOLUME 87.8 fl (80-96); MEAN PLT VOLUME 7.3 fl (7.5-11.1); MONO % 2.8 % (3.8-10.2); NEUT % 88.3 % (42.8-82.8); PLATELET COUNT 195 K/MM3 (134-434); RBC 4.35 M/mm3 (3.60-5.2); RDW 13.8 % (11.6-15.6)
[2018-04-28 07:24] LABS: ALBUMIN 3.2 g/dl (3.4-5.0); ALK PHOS 65 U/L (45-117); ANION GAP 6 MMOL/L (8-16); BILIRUBIN,TOTAL 0.5 mg/dL (0.2-1); BLOOD UREA NITROGEN 11 mg/dL (7-18); CALCIUM 8.3 mg/dL (8.5-10.1); CHLORIDE 110 mmol/L (98-107); CO2 27 mmol/L (21-32); CREATININE 0.7 mg/dL (0.55-1.3); GLUCOSE,RANDOM 146 mg/dL (74-106); MAGNESIUM 1.8 mg/dL (1.8-2.4); PHOSPHOROUS 3.4 mg/dL (2.5-4.9); POTASSIUM 4.5 mmol/L (3.5-5.1); SGOT/AST 26 U/L (15-37); SGPT/ALT 28 U/L (13-61); SODIUM 142 mmol/L (136-145); TOT PROT 5.8 g/dl (6.4-8.2)
--- NOTE | 2018-04-28 08:40 | PN ---
Progress Note, Physician Chief Complaint: s/p I&D left fourth digit hand under general anesthesia History of Present Illness: post op day one - Current Medication List Current Medications: Active Medications Acetaminophen (Tylenol -) 650 mg PO Q6H PRN PRN Reason: PAIN LEVEL 1-5 Lactated Ringer's (Lactated Ringers Solution) 1,000 mls @ 125 mls/hr IV ASDIR [facility] Last Admin: 04/28/18 02:49 Dose: 125 mls/hr Ampicillin Sodium/Sulbactam (Sodium 1.5 gm/ Dextrose) 100 mls @ 200 mls/hr IVPB Q6H-IV [facility] Last Admin: 04/28/18 02:50 Dose: 200 mls/hr Ibuprofen (Motrin -) 600 mg PO Q6H PRN PRN Reason: PAIN LEVEL 1-5 Ketorolac Tromethamine (Toradol Injection -) 15 mg IVPUSH Q6H PRN PRN Reason: PAIN LEVEL 7 - 10 Stop: 05/03/18 00:18 Nicotine (Nicoderm Patch -) 7 mg TD DAILY [facility] - Objective Vital Signs: Vital Signs Temperature 98 F 04/28/18 06:26 Pulse Rate 43 L 04/28/18 06:26 Respiratory Rate 20 04/28/18 06:26 Blood Pressure 138/52 L 04/28/18 06:26 O2 Sat by Pulse Oximetry (%) 96 04/28/18 00:04 Constitutional: Yes: Well Nourished Cardiovascular: Yes: WNL Respiratory: Yes: WNL Gastrointestinal: Yes: WNL Labs: CBC, BMP 04/28/18 05:30 04/28/18 05:30 Assessment/Plan No adverse anesthetic events, no nausea or vomiting, no complaints, dept of anesthesiology will sign off care at this time
--- NOTE | 2018-04-28 09:48 | PN ---
Progress Note, Physician Chief Complaint: left hand dog bite History of Present Illness: 72 yo female RHD with PMH HTN, glaucoma, anxiety, OA Czech bulldog when aggravated dog turned and bit her in the left hand incurring an open wound to the proximal aspect of her fourth left digit. stable post opertatively. - Current Medication List Current Medications: Active Medications Acetaminophen (Tylenol -) 650 mg PO Q6H PRN PRN Reason: PAIN LEVEL 1-5 Lactated Ringer's (Lactated Ringers Solution) 1,000 mls @ 125 mls/hr IV ASDIR [facility] Last Admin: 04/28/18 02:49 Dose: 125 mls/hr Ampicillin Sodium/Sulbactam (Sodium 1.5 gm/ Dextrose) 100 mls @ 200 mls/hr IVPB Q6H-IV [facility] Last Admin: 04/28/18 02:50 Dose: 200 mls/hr Ibuprofen (Motrin -) 600 mg PO Q6H PRN PRN Reason: PAIN LEVEL 1-5 Ketorolac Tromethamine (Toradol Injection -) 15 mg IVPUSH Q6H PRN PRN Reason: PAIN LEVEL 7 - 10 Stop: 05/03/18 00:18 Nicotine (Nicoderm Patch -) 7 mg TD DAILY [facility] - Objective Vital Signs: Vital Signs Temperature 98 F 04/28/18 06:26 Pulse Rate 43 L 04/28/18 06:26 Respiratory Rate 20 04/28/18 06:26 Blood Pressure 138/52 L 04/28/18 06:26 O2 Sat by Pulse Oximetry (%) 96 04/28/18 00:04 Vital Signs Period Temp Pulse Resp BP Sys/Caruso Pulse Ox Last 24 Hr 97.5 F-98.6 F 43-68 16-20 124-172/50-71 96-100 Constitutional: Yes: Well Nourished, No Distress, Calm, Thin Eyes: Yes: Conjunctiva Clear, EOM Intact HENT: Yes: Atraumatic, Normocephalic Neck: Yes: Supple, Trachea Midline Cardiovascular: Yes: Regular Rate and Rhythm, S1, S2 Respiratory: Yes: Regular, CTA Bilaterally Gastrointestinal: Yes: Normal Bowel Sounds, Soft. No: Tenderness ...Rectal Exam: Yes: Deferred Genitourinary: No: CVA Tenderness - Left, CVA Tenderness - Right Breast(s): No: Discharge from Nipple, Skin Changes Musculoskeletal: No: Back Pain, Muscle Pain Extremities: No: Cool, Cyanosis Edema: No Peripheral Pulses WNL: Yes Peripheral Pulses: Left Radial: 2+, Right Radial: 2+, Left Doralis Pedis: 2+, Right Dorsalis Pedis: 2+, Left Femoral: 2+, Right Femoral: 2+ Integumentary: No: Jaundice Wound/Incision: Yes: Clean/Dry, Well Approximated, Dressing Dry and Intact Neurological: Yes: Alert, Oriented Psychiatric: Yes: Alert, Oriented Labs: CBC, BMP 04/28/18 05:30 04/28/18 05:30 Problem List - Problems (1) Open fracture of proximal phalanx of left ring finger Assessment/Plan: 72yo yo female RHD with a left proximal ring finger open fracture after dog bite POD#1 s/p ORPP of left ring finger proximal phalanx. 24 hours of unasyn keep left arm elevated above heart level may be discharged 04/28/2018 f/u in 2 weeks Code(s): S62.615B - DISP FX OF PROXIMAL PHALANX OF L RNG FNGR, INIT FOR OPN FX Qualifiers: Encounter type: initial encounter Fracture alignment: displaced Qualified Code(s): S62.615B - Displaced fracture of proximal phalanx of left ring finger, initial encounter for open fracture (2) Dog bite of multiple sites of left hand and fingers Code(s): S61.452A - OPEN BITE OF LEFT HAND, INITIAL ENCOUNTER; S61.259A - OPEN BITE OF UNSP FINGER WITHOUT DAMAGE TO NAIL, INIT ENCNTR; W54.0XXA - BITTEN BY DOG, INITIAL ENCOUNTER Qualifiers: Encounter type: initial encounter Qualified Code(s): S61.452A - Open bite of left hand, initial encounter; S61.259A - Open bite of unspecified finger without damage to nail, initial encounter; W54.0XXA - Bitten by dog, initial encounter (3) Anxiety Code(s): F41.9 - ANXIETY DISORDER, UNSPECIFIED (4) HTN (hypertension) Code(s): I10 - ESSENTIAL (PRIMARY) HYPERTENSION Qualifiers: Hypertension type: essential hypertension Qualified Code(s): I10 - Essential (primary) hypertension (5) Glaucoma Code(s): H40.9 - UNSPECIFIED GLAUCOMA
[2018-04-28] MEDS ORDERED: PT OWN MED DRAWER 7, Y5N ONE (09:55)
[2018-04-28] MEDS ORDERED: NICOTINE 7 MG/24 HOURS TOPICAL PATCH TD SCH ×2 (10:00)
--- NOTE | 2018-04-28 14:15 | PN ---
Physical Exam: SUBJECTIVE: Patient seen and examined this AM. She states that she is still having pain but improved from yesterday. She expresses concern that she has not yet received her medications. Discussed with patient that we will verify list with pharmacy and make sure all her medications are ordered. OBJECTIVE: Vital Signs Period Temp Pulse Resp BP Sys/Caruso Pulse Ox Last 24 Hr 97.5 F-98.6 F 43-68 16-20 124-172/49-71 96-100 GENERAL: A&O, no acute distress HEAD: Normocephalic, atraumatic. EYES: no scleral icterus EARS, NOSE, THROAT: Moist mucous membranes. NECK: supple without lymphadenopathy LUNGS: CTA b/l, no crackles or wheezes HEART: Regular rate and rhythm, normal S1 and S2 without murmur ABDOMEN: Soft, nontender to palpation, normoactive bowel sounds MUSCULOSKELETAL: No bony deformities or tenderness. EXTREMITIES: Left hand in cast, able to move distal fingers. NEUROLOGICAL: Cranial nerves II-XII grossly intact. Normal speech. Laboratory Results - last 24 hr 04/27/18 04/27/18 04/27/18 17:30 17:30 17:40 WBC 6.3 RBC 5.07 Hgb 14.3 Hct 44.5 MCV 87.8 MCH 28.2 MCHC 32.1 RDW 13.8 Plt Count 246 MPV 7.2 L Absolute Neuts (auto) 4.9 Neutrophils % 76.8 Lymphocytes % 14.6 Monocytes % 6.9 Eosinophils % 0.8 D Basophils % 0.9 Nucleated RBC % 0 Sodium 139 Potassium 4.6 Chloride 106 Carbon Dioxide 27 Anion Gap 6 L BUN 12 Creatinine 0.8 Creat Clearance w eGFR > 60 Random Glucose 105 Calcium 9.2 Phosphorus Magnesium Total Bilirubin 0.4 AST 35 ALT 36 Alkaline Phosphatase 83 Total Protein 7.9 Albumin 4.4 Urine Color Straw Urine Appearance Clear Urine pH 6.0 Ur Specific [place] 1.005 L Urine Protein Negative Urine Glucose (UA) Negative Urine Ketones Negative Urine Blood 1+ H Urine Nitrite Negative Urine Bilirubin Negative Urine Urobilinogen Negative Ur Leukocyte Esterase Negative Urine WBC (Auto) <1 Urine RBC (Auto) 1 Ur Epithelial Cells Rare Urine Mucus Rare 04/28/18 04/28/18 05:30 05:30 WBC 7.0 RBC 4.35 Hgb 12.3 Hct 38.2 MCV 87.8 MCH 28.3 MCHC 32.2 RDW 13.8 Plt Count 195 D MPV 7.3 L Absolute Neuts (auto) 6.2 Neutrophils % 88.3 H Lymphocytes % 8.5 D Monocytes % 2.8 L Eosinophils % 0.1 D Basophils % 0.3 Nucleated RBC % 0 Sodium 142 Potassium 4.5 Chloride 110 H Carbon Dioxide 27 Anion Gap 6 L BUN 11 Creatinine 0.7 Creat Clearance w eGFR > 60 Random Glucose 146 H Calcium 8.3 L Phosphorus 3.4 Magnesium 1.8 Total Bilirubin 0.5 AST 26 ALT 28 Alkaline Phosphatase 65 Total Protein 5.8 L Albumin 3.2 L Urine Color Urine Appearance Urine pH Ur Specific [place] Urine Protein Urine Glucose (UA) Urine Ketones Urine Blood Urine Nitrite Urine Bilirubin Urine Urobilinogen Ur Leukocyte Esterase Urine WBC (Auto) Urine RBC (Auto) Ur Epithelial Cells Urine Mucus Active Medications Generic Name Dose Route Start Last Admin Trade Name Freq PRN Reason Stop Dose Admin Acetaminophen 650 mg 04/28/18 00:20 Tylenol - PO Q6H PRN PAIN LEVEL 1-5 Lactated Ringer's 1,000 mls @ 125 mls/hr 04/27/18 23:45 04/28/18 02:49 Lactated Ringers Solution IV 125 mls/hr ASDIR ROSA ISELA Administration Ampicillin Sodium/Sulbactam 100 mls @ 200 mls/hr 04/28/18 03:00 04/28/18 09: 59 Sodium 1.5 gm/ Dextrose IVPB 200 mls/hr Q6H-IV ROSA ISELA Administration Ibuprofen 600 mg 04/28/18 00:20 Motrin - PO Q6H PRN PAIN LEVEL 1-5 Ketorolac Tromethamine 15 mg 04/28/18 00:19 Toradol Injection - IVPUSH 05/03/18 00:18 Q6H PRN PAIN LEVEL 7 - 10 Nicotine 7 mg 04/28/18 10:00 04/28/18 10:00 Nicoderm Patch - TD Not Given DAILY [facility] ASSESSMENT/PLAN:
--- NOTE | 2018-04-28 15:11 | DS ---
Physical Exam: SUBJECTIVE: Patient seen and examined this AM. She states her pain is present but improved from yesterday. Expresses concern about receiving her home meds and going home today. OBJECTIVE: Vital Signs Period Temp Pulse Resp BP Sys/Caruso Pulse Ox Last 24 Hr 97.5 F-98.6 F 43-71 16-20 104-172/49-71 96-100 PHYSICAL EXAM GENERAL: A&O, no acute distress HEAD: Normocephalic, atraumatic. EYES: no scleral icterus EARS, NOSE, THROAT: Moist mucous membranes. NECK: supple without lymphadenopathy LUNGS: CTA b/l, no crackles or wheezes HEART: Regular rate and rhythm, normal S1 and S2 without murmur ABDOMEN: Soft, nontender to palpation, normoactive bowel sounds MUSCULOSKELETAL: No bony deformities or tenderness. EXTREMITIES: Left hand in cast, able to move distal fingers. NEUROLOGICAL: Cranial nerves II-XII grossly intact. Normal speech. LABS Laboratory Results - last 24 hr 04/27/18 04/27/18 04/27/18 17:30 17:30 17:40 WBC 6.3 RBC 5.07 Hgb 14.3 Hct 44.5 MCV 87.8 MCH 28.2 MCHC 32.1 RDW 13.8 Plt Count 246 MPV 7.2 L Absolute Neuts (auto) 4.9 Neutrophils % 76.8 Lymphocytes % 14.6 Monocytes % 6.9 Eosinophils % 0.8 D Basophils % 0.9 Nucleated RBC % 0 Sodium 139 Potassium 4.6 Chloride 106 Carbon Dioxide 27 Anion Gap 6 L BUN 12 Creatinine 0.8 Creat Clearance w eGFR > 60 Random Glucose 105 Calcium 9.2 Phosphorus Magnesium Total Bilirubin 0.4 AST 35 ALT 36 Alkaline Phosphatase 83 Total Protein 7.9 Albumin 4.4 Urine Color Straw Urine Appearance Clear Urine pH 6.0 Ur Specific Verbena 1.005 L Urine Protein Negative Urine Glucose (UA) Negative Urine Ketones Negative Urine Blood 1+ H Urine Nitrite Negative Urine Bilirubin Negative Urine Urobilinogen Negative Ur Leukocyte Esterase Negative Urine WBC (Auto) <1 Urine RBC (Auto) 1 Ur Epithelial Cells Rare Urine Mucus Rare 04/28/18 04/28/18 05:30 05:30 WBC 7.0 RBC 4.35 Hgb 12.3 Hct 38.2 MCV 87.8 MCH 28.3 MCHC 32.2 RDW 13.8 Plt Count 195 D MPV 7.3 L Absolute Neuts (auto) 6.2 Neutrophils % 88.3 H Lymphocytes % 8.5 D Monocytes % 2.8 L Eosinophils % 0.1 D Basophils % 0.3 Nucleated RBC % 0 Sodium 142 Potassium 4.5 Chloride 110 H Carbon Dioxide 27 Anion Gap 6 L BUN 11 Creatinine 0.7 Creat Clearance w eGFR > 60 Random Glucose 146 H Calcium 8.3 L Phosphorus 3.4 Magnesium 1.8 Total Bilirubin 0.5 AST 26 ALT 28 Alkaline Phosphatase 65 Total Protein 5.8 L Albumin 3.2 L Urine Color Urine Appearance Urine pH Ur Specific Verbena Urine Protein Urine Glucose (UA) Urine Ketones Urine Blood Urine Nitrite Urine Bilirubin Urine Urobilinogen Ur Leukocyte Esterase Urine WBC (Auto) Urine RBC (Auto) Ur Epithelial Cells Urine Mucus HOSPITAL COURSE: Date of Admission:04/27/18 Date of Discharge: 04/28/18 HPI on Admission: 72 y/o F with PMHx of Glaucoma, Panic Attacks, HLD presents after being bitten by her son's, girlfriends dog. Patient has been bitten by the same dog 3 times in the past 1.5 years. Today she was cleaning the dog when she was bitten on her NonDominant hand. She experienced pain and visited an Urgent care where she was referred to the ED for possible fracture. She has not tried to clean the wound nor has she tried anything for pain. She describes the pain as a Dull, constant 9/10 at the left 4th digit that radiates to her anterior palm. She received her last tetanus shot when she was bitten initially 1.5 years ago. The dogs automation lead was at bedside and mentions the dog is up to date on all vaccines/ shots and has had his most recent rabies shot. Of note, the patient is currently completing a 7 day course of ABx (Unknown which one) for a UTI. Denies any associated fevers, chills, chest pain, SOB, nausea, vomiting, diarrhea, constipation. Hospital Course: She was seen by hand surgery who took her to the OR for a washout and repair of the fracture in her left 4th digit. She received 24 hours of IV Unasyn and was deemed medically safe for discharge with 10 days of Augmentin 875mg BID which was sent to her pharmacy and follow up with surgery in 2 weeks. Minutes to complete discharge: 35 Discharge Summary Reason For Visit: DOG BITE MULTIPLE SITES OF LEFT HAND Current Active Problems Anxiety (Acute) Dog bite of multiple sites of left hand and fingers (Acute) Glaucoma (Acute) HTN (hypertension) (Acute) Open fracture of proximal phalanx of left ring finger (Acute) Condition: Good - Instructions Diet, Activity, Other Instructions: Postoperative instructions: You had a left finger surgery for cleaning and repair of a fracture following a dog bite on 04/27/[address] Bradford Soto of [facility]. Activity: Resume your usual activities gradually, but no heavy exertion or lifting more than 10-15 pounds for 4-6 weeks. Please marjan left arm cast clean and dry until followup in 2 weeks. Eat lightly at first, but advance to your usual diet as tolerated. Pain: For pain, you may use and alternate Tylenol (acetaminophen) 1-2 pills and/ or ibuprofen 200 mg (1-3 pills) every 6 hours each as needed; this means that you can take one OR the other at 3-hour intervals. If you are prescribed a Tylenol/narcotic combination for severe pain, use it instead of plain Tylenol as needed and switch back when your pain starts decreasing. Do not take more than 4000 mg of acetaminophen in a day. Take medications as prescribed or indicated on the labeling. Follow-up: Call Dr. Soto' office at [phone] to make your postop appointment (Thursday in approximately 2 weeks after surgery as advised). Clinic is held in the [facility] on the first floor of [facility]. Call the office if you have: * increasing pain not responsive to pain medication * fever of 101F or higher * unusual or increasing bleeding or drainage from wounds * increasing redness or swelling at wound sites Also, see your primary medical doctor within 1-2 weeks. Referrals: Bradford Soto MD [Staff Physician] - Disposition: HOME - Home Medications Comprehensive Discharge Medication List: Ambulatory Orders Brimonidine Tartrate [Alphagan 0.2% -] 1 drop OU DAILY 02/08/17 Atorvastatin Calcium [Lipitor] 20 mg PO HS 04/27/18 Sertraline HCl [Zoloft -] 50 mg PO BID 04/27/18 Travoprost [Travatan Z] 2.5 ml OU ASDIR 04/27/18 Alprazolam 0.5 mg PO DAILY 04/28/18 Amox-Tr/K Cl [Augmentin - 875Mg Tablet] 1 tab PO BID #20 tablet 04/28/18 Gabapentin 100 mg PO BID 04/28/18 Nitrofurantoin Monohyd/M-Cryst [Macrobid -] 100 mg PO BID 04/28/18 Quetiapine Fumarate [Seroquel -] 12.5 mg PO BID 04/28/18 This patient is new to me today: Yes Date on this admission: 04/28/18 Emergency Visit: Yes ED Registration Date: 04/27/18 Care time: The patient presented to the Emergency Department on the above date and was hospitalized for further evaluation of their emergent condition. Critical Care patient: No - Discharge Referral Referred to [facility] Med P.C.: No
[2018-04-28] MEDS ORDERED: BRIMONIDINE TARTRATE 0.2% OPHTHALMIC 5 ML BOTTLE OU SCH (15:15)
[2018-04-28] MEDS ORDERED: ALPRAZolam 0.25 MG TABLET PO SCH (15:15)
[2018-04-28 17:02] VITALS: BP 136/61; PULSE 63; TEMP 98
--- NOTE | 2018-04-28 18:18 | PN ---
Teaching Attending Note Name of Resident: Chris Nichols ATTENDING PHYSICIAN STATEMENT I saw and evaluated the patient. I reviewed the resident's note and discussed the case with the resident. I agree with the resident's findings and plan as documented. SUBJECTIVE: Feels well. Denies pain. No fever/chills. OBJECTIVE: Afebrile, Hemodynamically Stable. Last Vital Signs Temp Pulse Resp BP Pulse Ox 98 F 63 18 136/61 96 04/28/18 16:20 04/28/18 16:20 04/28/18 16:20 04/28/18 16:20 04/28/18 12:00 HEENT - Atraumatic, Normocephalic Heart - S1, S2, RRR Lungs - clear to auscultation. No crackles/wheeze Abdomen - soft, non-tender. Bowel Sounds normal. Extremities - no edema. Left hand dressed. Wiggles fingers. Sensation intact. Laboratory Results - last 24 hr 04/28/18 04/28/18 05:30 05:30 WBC 7.0 RBC 4.35 Hgb 12.3 Hct 38.2 MCV 87.8 MCH 28.3 MCHC 32.2 RDW 13.8 Plt Count 195 D MPV 7.3 L Absolute Neuts (auto) 6.2 Neutrophils % 88.3 H Lymphocytes % 8.5 D Monocytes % 2.8 L Eosinophils % 0.1 D Basophils % 0.3 Nucleated RBC % 0 Sodium 142 Potassium 4.5 Chloride 110 H Carbon Dioxide 27 Anion Gap 6 L BUN 11 Creatinine 0.7 Creat Clearance w eGFR > 60 Random Glucose 146 H Calcium 8.3 L Phosphorus 3.4 Magnesium 1.8 Total Bilirubin 0.5 AST 26 ALT 28 Alkaline Phosphatase 65 Total Protein 5.8 L Albumin 3.2 L ASSESSMENT AND PLAN: 72 year old female with HLD, Glaucoma, panic attacks, admitted 04/27/17 with L hand 4th digit swelling/erythema/tenderness s/p dog bite. Cellulitis and comminuted prox phalynx sec to Dog Bite s/p debridement and ORIF L 4th finger by Hand Surgery - POD 1 Treated with IV Unasyn Medically stable for discharge on Augmentin for 10 days with outpatient surgery follow up.
--- NOTE | 2018-04-28 18:59 | EKG ---
Test Reason : Blood Pressure : / mmHG Vent. Rate : 060 BPM Atrial Rate : 060 BPM P-R Int : 178 ms QRS Dur : 092 ms QT Int : 454 ms P-R-T Axes : 041 -27 048 degrees QTc Int : 454 ms NORMAL SINUS RHYTHM POSSIBLE LEFT ATRIAL ENLARGEMENT POSSIBLE INFERIOR INFARCT , AGE UNDETERMINED ABNORMAL ECG WHEN COMPARED WITH ECG OF 08-FEB-2017 17:55, NO SIGNIFICANT CHANGE WAS FOUND Confirmed by MIKE CASTILLO, HELLEN ([id number]) on 04/28/2018 6:59:17 PM Referred By: TRACY Confirmed By:HELLEN MCKEON MD
[2018-04-28] MEDS ORDERED: GABAPENTIN 100 MG CAPSULE (FP) PO SCH (22:00)
[2018-04-28] MEDS ORDERED: PATIENT'S OWN MEDICATION (NON-FORMULARY) (Nitrofurantoin Monohyd/M-Cryst 100 MG) PO SCH (22:00)
[2018-04-28] MEDS ORDERED: LATANOPROST 0.005% OPHTH SOLN 2.5ML BOTTLE OU SCH (22:00)
[2018-04-28] MEDS ORDERED: ATORVASTATIN CA 20 MG TABLET (FP) PO SCH (22:00)
[2018-04-28] MEDS ORDERED: SERTRALINE HCL 50 MG TABLET (FP) PO SCH (22:00)
== END 2018-04-28 17:53 | disposition home or self-care (01) ==
LOC: JERFT 16:03 → JER 16:03 → JERBED 19:12 → J8W 04-28 00:08
PROVIDERS: ADMIT Internal Medicine
PROC: 0LQ80ZZ Repair Left Hand Tendon, Open Approach (ICD-10-PCS; 2018-04-27)
PROC: 3E03329 Introduction of Other Anti-infective into Peripheral Vein, Percutaneous Approach (ICD-10-PCS; 2018-04-27)
PROC: 3E0337Z Introduction of Electrolytic and Water Balance Substance into Peripheral Vein, Percutaneous Approach (ICD-10-PCS; 2018-04-27)
PROC: 0PSV04Z Reposition Left Finger Phalanx with Internal Fixation Device, Open Approach (ICD-10-PCS; principal; 2018-04-27 22:00)
DX: S62.615B Displaced fracture of proximal phalanx of left ring finger, initial encounter for open fracture (principal); S61.452A Open bite of left hand, initial encounter; W54.0XXA Bitten by dog, initial encounter; Y93.F1 Activity, caregiving, bathing; Y92.9 Unspecified place or not applicable; I10 Essential (primary) hypertension; H40.9 Unspecified glaucoma; F41.9 Anxiety disorder, unspecified; M19.90 Unspecified osteoarthritis, unspecified site; F10.10 Alcohol abuse, uncomplicated; Z87.891 Personal history of nicotine dependence
CPT/HCPCS: 26725; 36415; 71046-TC-FY; 73140-TC-LT-FY; 76000-TC-FY; 80053; 81003; 81015; 83735; 84100; 85025; 93005; 93010; 94760; 96361; 96365; 96375; 99283-25; G0378; J0131

== ENCOUNTER 2018-05-26 11:34 | Emergency (ER) | payer OTHER ==
[2018-05-26 11:59] VITALS: BMI 21.4
--- NOTE | 2018-05-26 12:00 | PDOC ---
History of Present Illness - History of Present Illness Initial Comments: 05/26/18 13:38 The patient is a 72 year old female, with a significant past medical history of glaucoma, who presents to the emergency department with 2 weeks of a dull ache to her right shoulder with increased pain this morning. The patient states she woke up to get ready for her clinic appointment to have the cast on her left arm removed when she noticed increased pain to her shoulder with blow drying and brushing her hair. She states she was driving to her appointment when she felt dizzy and lightheaded secondary to her pain level. She states she continued with her symptoms in the clinic where she was given two Motrin with improvement of her pain. She denies any dizziness or lightheadedness now. The patient denies chest pain, shortness of breath, headache. The patient denies fever, chills, nausea, vomit, diarrhea and constipation. The patient denies dysuria, frequency, urgency and hematuria. Allergies: NKDA Past surgical history: left hand surgery Social history: denies toxic habits <Kyra Cannon - Last Filed: 05/26/18 13:38> - General History Source: Patient Exam Limitations: No Limitations <Yoselyn Garcia - Last Filed: 05/27/18 10:07> - General Chief Complaint: Lightheaded Stated Complaint: SHOULDERPAIN / DIZZINESS Time Seen by Provider: 05/26/18 12:00 Past History <Kyra Cannon - Last Filed: 05/26/18 13:38> - Past Medical History COPD: No CHF: No Thyroid Disease: No - Immunization History Immunization Up to Date: No - Suicide/Smoking/Psychosocial Hx Smoking History: Never smoked Have you smoked in the past 12 months: No If you are a former smoker, when did you quit?: 2007 Information on smoking cessation initiated: No Hx Alcohol Use: No Drug/Substance Use Hx: No Substance Use Type: None <Yoselyn Garcia - Last Filed: 05/27/18 10:07> - Past Medical History Allergies/Adverse Reactions: Allergies Allergy/AdvReac Type Severity Reaction Status Date / Time No Known Allergies Allergy Verified 04/27/18 16:52 Home Medications: Ambulatory Orders Brimonidine Tartrate [Alphagan 0.2% -] 1 drop OU DAILY 02/08/17 Atorvastatin Calcium [Lipitor] 20 mg PO HS 04/27/18 Sertraline HCl [Zoloft -] 50 mg PO BID 04/27/18 Travoprost [Travatan Z] 2.5 ml OU ASDIR 04/27/18 Alprazolam 0.5 mg PO DAILY 04/28/18 Gabapentin 100 mg PO BID 04/28/18 Quetiapine Fumarate [Seroquel -] 12.5 mg PO BID 04/28/18 Methocarbamol [Robaxin -] 500 mg PO BID #20 tablet 05/26/18 Review of Systems - Review of Systems Able to Perform ROS?: Yes Comments:: 05/26/18 13:39 CONSTITUTIONAL: Absent: fever, no chills, no fatigue EYES: Absent: visual changes ENT: Absent: ear pain, no sore throat CARDIOVASCULAR: Absent: chest pain, no palpitations RESPIRATORY: Absent: cough, no SOB GASTROINTESTINAL: Absent: abdominal pain, no nausea, no vomiting, no constipation, no diarrhea GENITOURINARY: Absent: dysuria, no frequency, no hematuria MUSCULOSKELETAL: (+) right shoulder pain. Absent: back pain, SKIN: Absent: rash NEURO: Absent: headache <Kyra Cannon - Last Filed: 05/26/18 13:38> *Physical Exam - Vital Signs Last Vital Signs Temp Pulse Resp BP Pulse Ox 98.0 F 52 L 16 116/53 L 97 05/26/18 11:56 05/26/18 11:56 05/26/18 11:56 05/26/18 11:56 05/26/18 11:56 - Physical Exam Comments: 05/26/18 13:39 GENERAL: The patient is in no acute distress. HEAD: Normal with no signs of trauma. EYES: PERRLA, EOMI, sclera anicteric, conjunctiva clear. ENT: Ears normal, nares patent, oropharynx clear without exudates. Moist mucous membranes. NECK: Normal range of motion, supple without lymphadenopathy, JVD, or masses. LUNGS: Breath sounds equal, clear to auscultation bilaterally. No wheezes, and no crackles. HEART:Regular rate and rhythm, normal S1 and S2 without murmur, rub or gallop. ABDOMEN: Soft, nontender, normoactive bowel sounds. No guarding, no rebound. No masses palpable. EXTREMITIES: (+) right shoulder pain with passive forward elevation to 90, pain with internal rotation to side. Pain with passive external rotation. Right shoulder tenderness anteriorly. Other extremities with normal range of motion, no edema. No clubbing or cyanosis. No erythema, NEUROLOGICAL: Cranial nerves II through XII grossly intact. Normal speech. No focal neurological deficits. MUSCULOSKELETAL: Back non-tender to palpation, no CVA tenderness SKIN: Warm, Dry, normal turgor, no rashes or lesions noted <Kyra Cannon - Last Filed: 05/26/18 13:38> - Vital Signs Last Vital Signs Temp Pulse Resp BP Pulse Ox 98.0 F 52 L 16 116/53 L 97 05/26/18 11:56 05/26/18 11:56 05/26/18 11:56 05/26/18 11:56 05/26/18 11:56 <Yoselyn Garcia - Last Filed: 05/27/18 10:07> Moderate Sedation - Procedure Monitoring Vital Signs: Procedure Monitoring Vital Signs Temperature 98.0 F 05/26/18 11:56 Pulse Rate 52 L 05/26/18 11:56 Respiratory Rate 16 05/26/18 11:56 Blood Pressure 116/53 L 05/26/18 11:56 O2 Sat by Pulse Oximetry (%) 97 05/26/18 11:56 <Kyra Cannon - Last Filed: 05/26/18 13:38> - Procedure Monitoring Vital Signs: Procedure Monitoring Vital Signs Temperature 98.0 F 05/26/18 11:56 Pulse Rate 52 L 05/26/18 11:56 Respiratory Rate 16 05/26/18 11:56 Blood Pressure 116/53 L 05/26/18 11:56 O2 Sat by Pulse Oximetry (%) 97 05/26/18 11:56 <Yoselyn Garcia - Last Filed: 05/27/18 10:07> ED Treatment Course - LABORATORY CBC & Chemistry Diagram: 05/26/18 12:37 05/26/18 12:37 - ADDITIONAL ORDERS Additional order review: Laboratory Results 05/26/18 05/26/18 12:37 12:37 PT with INR 11.70 INR 0.99 Sodium 139 Potassium 4.2 Chloride 107 Carbon Dioxide 26 Anion Gap 6 L BUN 14 Creatinine 0.8 Creat Clearance w eGFR > 60 Random Glucose 108 H Calcium 8.5 Magnesium 2.0 Total Bilirubin 0.3 AST 27 ALT 28 Alkaline Phosphatase 67 Creatine Kinase 78 Troponin I < 0.02 Total Protein 6.6 Albumin 3.8 05/26/18 12:37 RBC 4.43 MCV 88.1 MCHC 33.1 RDW 13.8 MPV 7.2 L Neutrophils % 83.8 H Lymphocytes % 8.2 Monocytes % 6.8 D Eosinophils % 0.8 D Basophils % 0.4 <Kyra Cannon - Last Filed: 05/26/18 13:38> - LABORATORY CBC & Chemistry Diagram: 05/26/18 12:37 05/26/18 12:37 <Yoselyn Garcia - Last Filed: 05/27/18 10:07> Medical Decision Making - Medical Decision Making 05/26/18 13:47 Pt has right shoulder pain It has been present for the past month, while she has been healing from her left hand surgery Right shoulder is tender anteriorly to palpation Pt has pain with flexion and abduction, particularly when she gets to 90 degrees She infact can not move past 90 degrees independently, due to pain No erythema overlying shoulder No swelling No deformities Pt did get lightheaded today in the setting of severe shoulder pain This all improved after she was given Motrin 400mg She now feels much better and questions the purpose of an EKG and labs Pt is agreeing to have labs done Pt lightheadedness most likely a response to her pain That said, would like to rule out ACS, anemia, electrolyte abn Unlikely PE given pt has no SOB, no chest pain, no tachycardia, no hypoxia, no leg swelling, no immobility Laboratory Tests 05/26/18 05/26/18 05/26/18 12:37 12:37 12:37 WBC 10.4 H Hgb 12.9 Hct 39.0 Plt Count 201 INR 0.99 BUN 14 Creatinine 0.8 Creatine Kinase 78 Troponin I < 0.02 05/26/18 13:47 EKG - NSR rate of 50 bpm, axis nml, no st elevation or depression, t waves inverted lead v2 CXR - nml 05/26/18 13:48 Shoulder x ray pending 05/26/18 14:23 Xray appears nml Case reviewed with Dr. Machado He will see this patient in the office Presentation most consistent with Rotator cuff injury <Yoselyn Garcia - Last Filed: 05/27/18 10:07> *DC/Admit/Observation/Transfer - Attestations Scribe Attestion: 05/26/18 13:39 Documentation prepared by Kyra Cannon, acting as medical equipment repair technician for Yoselyn Garcia MD <Kyra Cannon - Last Filed: 05/26/18 13:38> - Discharge Dispostion Decision to Admit order: No <Yoselyn Garcia - Last Filed: 05/27/18 10:07> Diagnosis at time of Disposition: Right shoulder pain Qualifiers: Chronicity: acute Qualified Code(s): M25.511 - Pain in right shoulder - Discharge Dispostion Disposition: HOME Condition at time of disposition: Stable - Prescriptions Prescriptions: Methocarbamol [Robaxin -] 500 mg PO BID #20 tablet - Referrals Referrals: Doris Monae [Primary Care Provider] - Abdiel Machado DO [Staff Physician] - - Patient Instructions Printed Discharge Instructions: DI for Shoulder Pain Additional Instructions: thank you for coming in to the ER today Please be sure to follow up with the Orthopedist Take medications as prescribed Return to the ER for any other concerns or complaints
[2018-05-26 12:59] LABS: BASO % 0.4 % (0-2.0); EOS % 0.8 % (0-4.5); HEMOGLOBIN 12.9 GM/dL (10.7-15.3); LYMPH % 8.2 % (8-40); MCH 29.2 pg (25.7-33.7); MCHC 33.1 g/dl (32.0-36.0); MEAN CELL VOLUME 88.1 fl (80-96); MEAN PLT VOLUME 7.2 fl (7.5-11.1); MONO % 6.8 % (3.8-10.2); NEUT % 83.8 % (42.8-82.8); PLATELET COUNT 201 K/MM3 (134-434); RBC 4.43 M/mm3 (3.60-5.2); RDW 13.8 % (11.6-15.6); WHITE BLOOD COUNT 10.4 K/mm3 (4.0-10.0)
[2018-05-26 13:16] LABS: ALBUMIN 3.8 g/dl (3.4-5.0); ALK PHOS 67 U/L (45-117); ANION GAP 6 MMOL/L (8-16); BILIRUBIN,TOTAL 0.3 mg/dL (0.2-1); BLOOD UREA NITROGEN 14 mg/dL (7-18); CALCIUM 8.5 mg/dL (8.5-10.1); CHLORIDE 107 mmol/L (98-107); CO2 26 mmol/L (21-32); CREATININE 0.8 mg/dL (0.55-1.3); GLUCOSE,RANDOM 108 mg/dL (74-106); POTASSIUM 4.2 mmol/L (3.5-5.1); SGOT/AST 27 U/L (15-37); SGPT/ALT 28 U/L (13-61); SODIUM 139 mmol/L (136-145); TOT PROT 6.6 g/dl (6.4-8.2)
[2018-05-26 13:35] LABS: INR 0.99 (0.83-1.09); PROTHROMBIN TIME (PATIENT) 11.7 SEC (9.7-13.0)
[2018-05-26] MEDS ORDERED: METHOCARBAMOL 500 MG TABLET PO ONE (13:49)
[2018-05-26] MEDS ORDERED: ACETAMINOPHEN 325 MG TABLET (FP) PO ONE (13:49)
[2018-05-26 13:57] VITALS: BP 148/50; PULSE 58; TEMP 99
--- NOTE | 2018-05-26 19:09 | EKG ---
Test Reason : Blood Pressure : / mmHG Vent. Rate : 050 BPM Atrial Rate : 050 BPM P-R Int : 200 ms QRS Dur : 094 ms QT Int : 486 ms P-R-T Axes : 018 -17 048 degrees QTc Int : 443 ms SINUS BRADYCARDIA OTHERWISE NORMAL ECG WHEN COMPARED WITH ECG OF 27-APR-2018 17:35, NO SIGNIFICANT CHANGE WAS FOUND Confirmed by NADEEM MIRANDA MD ([id number]) on 05/26/2018 7:08:51 PM Referred By: Confirmed By:NADEEM MIRANDA MD
== END 2018-05-26 15:15 | disposition home or self-care (01) ==
LOC: JER 11:34
DX: M25.511 Pain in right shoulder (principal); H40.9 Unspecified glaucoma; Z87.891 Personal history of nicotine dependence
CPT/HCPCS: 36415; 71045-TC-FY; 73030-TC-RT-FY; 80053; 82550; 83735; 84484; 85025; 85610; 86850; 86900; 86901; 93005; 93010; 99282-25